=== PATIENT | male | born 1995 | race Caucasian/White ===

== ENCOUNTER 2019-12-09 19:06 | Emergency (ER) | payer SELFPAY ==
--- NOTE | 2019-12-09 19:41 | EDM.PDOC ---
ED [facility] GENERAL MEDICAL PROBLEM - General Chief Complaint: Lower Extremity Injury/Pain Stated Complaint: INJURED LEFT KNEE Time Seen by Provider: 12/09/19 19:30 Source of Information: Reports: Patient History Limitations: Reports: No Limitations - History of Present Illness INITIAL COMMENTS - FREE TEXT/NARRATIVE: Patient is a 24-year-old female who presents to the emergency department with complaints of left-sided knee pain with ambulation. He states today he was walking down some stairs and his knee "gave out ". Since that time he has been experiencing pain to the medial and posterior aspects of the knee. He denies any previous injury to this extremity. Left Knee Pain Score (Numeric/FACES): 9 - Related Data Allergies Allergy/AdvReac Type Severity Reaction Status Date / Time No Known Allergies Allergy Verified 12/09/19 19:37 Home Meds: Home Meds . [No Known Home Meds] 12/09/19 [History] Review of Systems - Review of Systems Review Of Systems: Comprehensive ROS is negative, except as noted in HPI. ED EXAM, GENERAL - Physical Exam Exam: See Below Exam Limited By: No Limitations General Appearance: Alert, WD/WN, No Apparent Distress Respiratory/Chest: No Respiratory Distress, Lungs Clear, Normal Breath Sounds, No Accessory Muscle Use, Chest Non-Tender Cardiovascular: Normal Peripheral Pulses, Regular Rate, Rhythm, No Edema, No Gallop, No JVD, No Murmur, No Rub Extremities: Normal Inspection, Normal Range of Motion, No Pedal Edema, Normal Capillary Refill, Other (tenderness medial to the patella and in the popliteal fossa. No swelling or deformity. Ligaments are found to be stable.) Neurological: Alert, Oriented, CN II-XII Intact, Normal Cognition, Normal Gait, Normal Reflexes, No Motor/Sensory Deficits Psychiatric: Normal Affect, Normal Mood Skin Exam: Warm, Dry, Intact, Normal Color, No Rash Course - Vital Signs Last Recorded V/S: Last Vital Signs Temp 98.7 F 12/09/19 19:30 Pulse 79 12/09/19 19:30 Resp 16 12/09/19 19:30 BP 119/72 12/09/19 19:30 Pulse Ox 98 12/09/19 19:30 - Re-Assessments/Exams Free Text/Narrative Re-Assessment/Exam: 12/09/19 20:02 X-ray of the left knee was negative for any bony abnormalities. Discussed with patient that the majority of knee injuries involve the ligaments which would not be shown on x-ray. We do not have elastic knee braces in this department, therefore we wrapped it in a Bashir wrap. If he continues to have pain by the end of next week, recommend a follow-up with orthopedics. Discharge instructions as documented. Departure - Departure Time of Disposition: 20:04 Disposition: Home, Self-Care 01 Condition: Good Clinical Impression: Knee pain Qualifiers: Chronicity: acute Laterality: left Qualified Code(s): M25.562 - Pain in left knee - Discharge Information *PRESCRIPTION DRUG MONITORING PROGRAM REVIEWED*: No *COPY OF PRESCRIPTION DRUG MONITORING REPORT IN PATIENT CAYLA: No Instructions: Acute Knee Pain, Adult Referrals: PCP,None [Primary Care Provider] - Forms: ED Department Discharge Additional Instructions: You were seen in the emergency department today for left knee pain. An x-ray was completed and found to be normal. As we discussed, however the majority of knee injuries involve the ligaments and this will not be shown on x-ray. An Bashir wrap has been applied to your knee as we do not carry elastic knee since in the emergency department. You may purchase a knee brace at [facility] or any drugstore. Recommend that you ice and elevate the knee as needed. You may use Tylenol or ibuprofen as needed for pain. If you continue to experience pain by the end of next week, recommend that you follow-up in clinic with an orthopedist[place] [facility] [facility]. Return to the ER as needed. Sepsis Event Note - Evaluation Sepsis Screening Result: No Definite Risk - Focused Exam Vital Signs: Vital Signs Temp Pulse Resp BP Pulse Ox 12/09/19 19:30 98.7 F 79 16 119/72 98 Date Exam was Performed: 12/09/19 Time Exam was Performed: 21:22
--- NOTE | 2019-12-09 20:24 | CR ---
Left knee: AP, lateral and sunrise patellar views left knee were obtained. Medial and lateral joint compartments are maintained in height. Questionable small joint effusion is noted. Patellofemoral joint appears within normal limits. Impression: 1. Questionable small joint effusion. 2. No additional abnormality is appreciated on left knee exam. Diagnostic code #2 Study was dictated in MDT
== END 2019-12-09 20:14 | disposition home or self-care (01) ==
LOC: JD.ED 19:06
DX: M25.562 Pain in left knee (principal)
CPT/HCPCS: 73562-26-LT; 73562-LT; 99282; 99283-25